=== PATIENT | female | born 1940 | race Asian ===

== ENCOUNTER 2018-04-03 08:58 | Day surgery (SDC) | payer MEDICARE, OTHER ==
[~2018-04-03] VITALS: Ht 160 cm; Wt 72.6 kg
[2018-04-03] MEDS ORDERED: VALS320T16 PO (10:01)
[2018-04-03] MEDS ORDERED: LEVO0.087 PO (10:01)
[2018-04-03] MEDS ORDERED: [UNRECOGNIZED DRUG - CODE] PO (10:01)
[2018-04-03] MEDS ORDERED: CARV25TA PO (10:01)
[2018-04-03] MEDS ORDERED: UBID50TA PO (10:02)
[2018-04-03] MEDS ORDERED: OSC500 PO (10:02)
[2018-04-03] MEDS ORDERED: RIVA15TA1 PO (10:02)
[2018-04-03] MEDS ORDERED: MULT-153 PO (10:02)
[2018-04-03] MEDS ORDERED: [UNRECOGNIZED DRUG - CODE] PO (10:02)
[2018-04-03] MEDS ORDERED: fentaNYL 0.05 MG/ML VIAL ONE (10:27)
[2018-04-03] MEDS ORDERED: MIDAZOLAM 2 MG/2 ML VIAL ONE (10:27)
[2018-04-03] MEDS ORDERED: LIDOCAINE 2% 100 MG/5 ML UJET TP ONE (10:28)
== END 2018-04-03 12:19 | disposition home or self-care (01) ==
LOC: MDS 08:58 → MMU 08:58 → MDS 12:19
PROVIDERS: ATTEND Internal Medicine Gastroenterology
DX: Z12.11 Encounter for screening for malignant neoplasm of colon (principal); D12.5 Benign neoplasm of sigmoid colon; K64.8 Other hemorrhoids; K57.30 Diverticulosis of large intestine without perforation or abscess without bleeding; I10 Essential (primary) hypertension; I48.91 Unspecified atrial fibrillation; E66.3 Overweight; Z95.0 Presence of cardiac pacemaker; Z98.890 Other specified postprocedural states; Z79.899 Other long term (current) drug therapy; Z68.28 Body mass index [BMI] 28.0-28.9, adult; Z86.010 Personal history of colon polyps
CPT/HCPCS: 45385; J3010; J2250